=== PATIENT | female | born 1965 | race Caucasian/White ===

== ENCOUNTER 2021-09-29 11:55 | Inpatient (IN) | payer OTHER ==
[~2021-09-29] VITALS: Ht 160 cm; Wt 70.3 kg
[2021-09-29] MEDS ORDERED: 0.9%NACL 1000ML 1,000 ML IV ONE (12:30)
[2021-09-29] MEDS ORDERED: ONDANSETRON 4MG INJ IVP ONE (12:30)
[2021-09-29 12:38] LABS: CARBON DIOXIDE 31 mmol/L (21-32); CHLORIDE 101 mmol/L (101-111); CREATININE 0.8 mg/dL (0.5-1.5); GLOMERULAR FILTR. RATE CALC 79 mL/min (>60); GLUCOSE,RANDOM 123 mg/dL (70-105); INR 0.99 (0.85-1.15); POTASSIUM 3.5 mmol/L (3.5-5.1); PROTHROMBIN TIME 10.8 SEC (9.6-11.6); SODIUM SERUM 138 mmol/L (136-145); UREA NITROGEN, BLOOD 12 mg/dL (7-18)
[2021-09-29 12:39] LABS: BASOPHILS % (AUTO) 0.3 % (0.0-5.0); EOSINOPHILS % (AUTO) 0.4 % (0.0-8.0); HEMATOCRIT 43.1 % (36-48); LYMPHOCYTES % (AUTO) 17.6 % (21.0-51.0); MEAN CORPUSCULAR HEMOGLOBIN 30.1 pg (27.0-33.0); MEAN CORPUSCULAR HGB CONC 33.6 g/dL (32.0-36.0); MEAN CORPUSCULAR VOLUME 89.6 fL (79-99); MONOCYTES % (AUTO) 8.1 % (3.0-13.0); NEUTROPHILS % (AUTO) 73.1 % (40.0-77.0); PLATELET COUNT (AUTO) 287 K/uL (130-400); RED BLOOD CELL COUNT(AUTO) 4.81 MIL/uL (4.00-5.50); RED CELL DISTRIBUTION WIDTH 14.5 % (11.0-15.5)
[2021-09-29 12:42] LABS: ALANINE AMINOTRANSFERASE 22 U/L (12-78); ALBUMIN 4.1 g/dL (3.5-5.0); ALCOHOL, BLOOD < 3 mg/dL (0-10); ASPARTATE AMINOTRANSFERASE 14 U/L (10-37); CREATINE KINASE, TOTAL 63 U/L (21-232); LIPASE 81 U/L (114-286); TOTAL PROTEIN, SERUM 7.6 g/dL (6.0-8.3)
[2021-09-29] MEDS ORDERED: IOHEXOL-350 75 ML VIAL IV ONE (14:48)
[2021-09-29] MEDS ORDERED: ASPIRIN 325MG TAB PO ONE (17:00)
[2021-09-29] MEDS ORDERED: ACETAMINOPHEN 325 MG TAB PO PRN ×2 (18:00)
[2021-09-29] MEDS ORDERED: ONDANSETRON 4MG INJ IV PRN (18:00)
[2021-09-29] MEDS ORDERED: BISACODYL 10 MG SUPP.RECT RC PRN (18:00)
[2021-09-29 18:28] LABS: HEMOGLOBIN A1C 6.2 % (4.0-6.0)
[2021-09-29] MEDS: ATORVASTATIN 40 MG TABLET PO SCH (21:00)
[2021-09-29 21:02] VITALS: BP 144/74
[2021-09-29 23:14] VITALS: BP 138/72
[2021-09-30 03:46] VITALS: BP 154/81
[2021-09-30 03:49] LABS: HEMATOCRIT 40.1 % (36-48); MEAN CORPUSCULAR HEMOGLOBIN 30.5 pg (27.0-33.0); MEAN CORPUSCULAR HGB CONC 33.7 g/dL (32.0-36.0); MEAN CORPUSCULAR VOLUME 90.5 fL (79-99); RED BLOOD CELL COUNT(AUTO) 4.43 MIL/uL (4.00-5.50); RED CELL DISTRIBUTION WIDTH 14.3 % (11.0-15.5); WHITE BLOOD COUNT (AUTO) 10.8 K/uL (4.8-10.8)
[2021-09-30 04:08] LABS: CREATININE 0.7 mg/dL (0.5-1.5); POTASSIUM 3.6 mmol/L (3.5-5.1)
[2021-09-30 07:50] VITALS: BP 144/118
[2021-09-30 11:21] VITALS: BP 156/77
[2021-09-30] MEDS: ASPIRIN 81MG CHEW TAB PO SCH (15:58)
[2021-09-30 16:00] VITALS: BP 173/80
[2021-09-30] MEDS ORDERED: SERT-439 PO (16:43)
[2021-09-30] MEDS ORDERED: OMEP20TA25 PO (16:43)
[2021-09-30] MEDS ORDERED: ASPI-1443 PO (16:43)
[2021-09-30] MEDS ORDERED: ROSU40TA21 PO (16:43)
[2021-09-30] MEDS ORDERED: MONT-39 PO (16:43)
[2021-09-30 19:24] VITALS: BP_SYST 153; BP_SYST 53; BP_DIAS 70
[2021-09-30] MEDS: ATORVASTATIN 40 MG TABLET PO SCH (20:56)
[2021-09-30 23:20] VITALS: BP 150/83
[2021-10-01 03:05] VITALS: BP 173/81
[2021-10-01 07:00] VITALS: BP 150/72
[2021-10-01] MEDS: ASPIRIN 81MG CHEW TAB PO SCH (08:38)
[2021-10-01 11:00] VITALS: BP 133/57
[2021-10-01 15:00] VITALS: BP 128/78
[2021-10-01 20:08] VITALS: BP 159/77
== END 2021-10-01 20:46 | disposition short-term general hospital (02) | DRG 65 ==
LOC: EDH 11:55 → EDHIP 11:56 → 2DH 21:00
PROVIDERS: ADMIT Internal Medicine; ATTEND Internal Medicine
DX: I63.532 Cerebral infarction due to unspecified occlusion or stenosis of left posterior cerebral artery (principal); G81.91 Hemiplegia, unspecified affecting right dominant side; R47.01 Aphasia; Z20.822 Contact with and (suspected) exposure to COVID-19; G51.0 Bell's palsy; I10 Essential (primary) hypertension; E78.5 Hyperlipidemia, unspecified; S09.90XA Unspecified injury of head, initial encounter; R29.709 NIHSS score 9; I25.10 Atherosclerotic heart disease of native coronary artery without angina pectoris; W01.0XXA Fall on same level from slipping, tripping and stumbling without subsequent striking against object, initial encounter; Y93.89 Activity, other specified; Y92.89 Other specified places as the place of occurrence of the external cause; Y99.8 Other external cause status; Z72.0 Tobacco use; Z88.0 Allergy status to penicillin
CPT/HCPCS: 36415; 70450; 70496; 70498; 70551; 71250; 72125; 74176; 74230; 80048; 80053; 80061; 82550; 83036; 83690; 84484; 85025; 85027; 85610; 86850; 86900; 86901; 87635; 92522; 92610; 92611; 93005; 93306; 93356; 93880; 97039; C9803; G0378; J2405; J7030; Q9967